=== PATIENT | female | born 1990 | race Caucasian/White ===

== ENCOUNTER 2020-02-25 08:09 | Outpatient (CLI) | payer OTHER, SELFPAY ==
[2020-02-25 08:31] LABS: Hematocrit 42.2 % (37.0-47.0); Hemoglobin 14.5 g/dL (12.0-15.0); Mean Corpuscular HGB Conc 34.4 g/dl (32-36); Mean Corpuscular Hemoglobin 30.5 pg (26-34); Mean Corpuscular Volume 88.7 fl (80-100); Platelet Count Result 283 k/mm3 (150-375); Red Blood Count 4.76 M/mm3 (4.2-5.4); White Blood Count 5.5 K/mm3 (4.5-10.0)
[2020-02-25 08:47] LABS: Blood Urea Nitrogen 16 mg/dL (7-17); Carbon Dioxide 28 mmol/L (22-30); Chloride 103 mmol/L (98-107); Estimated Glomerular Filt Rate > 60; Glucose 118 mg/dL (65-105); Potassium 3.9 mmol/L (3.4-5.0); Sodium 136 mmol/L (137-145)
[2020-02-27 21:10] LABS: Varicella IgM Antibody <=0.90 (<=0.90)
== END 2020-02-25 08:10 | disposition home or self-care (01) ==
LOC: ANHLAB 08:12
PROVIDERS: PCP Family Medicine; Visit Provider Nurse Practitioner Family
DX: K62.5 Hemorrhage of anus and rectum (principal); Z86.19 Personal history of other infectious and parasitic diseases; Z13.1 Encounter for screening for diabetes mellitus
CPT/HCPCS: 36415; 80048; 84443; 85027; 86787

== ENCOUNTER 2020-06-07 10:56 | Outpatient (CLI) | payer OTHER, SELFPAY ==
[2020-06-07 11:37] LABS: Anion Gap 6 mmol/L (8-16); Blood Urea Nitrogen 15 mg/dL (7-17); Carbon Dioxide 31 mmol/L (22-30); Chloride 104 mmol/L (98-107); Estimated Glomerular Filt Rate > 60; Glucose 83 mg/dL (65-105); Potassium 3.9 mmol/L (3.4-5.0); Sodium 141 mmol/L (137-145)
[2020-06-07 12:20] LABS: Free T4 Free Thyroxine 0.69 ng/mL (0.78-2.19)
== END 2020-06-07 10:57 | disposition home or self-care (01) ==
LOC: ANHLAB 10:58
PROVIDERS: PCP Family Medicine; Visit Provider Nurse Practitioner Family
DX: E03.9 Hypothyroidism, unspecified (principal); E83.51 Hypocalcemia
CPT/HCPCS: 36415; 80048; 84439; 84443

== ENCOUNTER 2021-01-26 09:36 | Outpatient (CLI) | payer OTHER, SELFPAY | END 2021-01-26 09:37 | disposition home or self-care (01) | PROVIDERS: PCP Family Medicine; Visit Provider Nurse Practitioner Family | DX: E03.9 Hypothyroidism, unspecified (principal) | CPT/HCPCS: 36415; 84439; 84443 ==

== ENCOUNTER 2021-06-13 15:28 | Outpatient (CLI) | payer OTHER, SELFPAY ==
--- NOTE | ~2021-06-13 | US_ITS ---
EXAMINATION: US OB <= 14 weeks fetus DATE: 06/13/2021 16:01 INDICATION: Irregular menstruation. Establish dating of during first trimester. TECHNIQUE: Real-time pelvic ultrasound utilizing both a transvaginal and transabdominal probe was pe rformed. The interpreting radiologist was not present for the study. COMPARISON: None. FINDINGS: The uterus measures 12.0 x 5.4 x 6.4 cm. There is an intrauterine gestational sac. A yolk sac and fe emery pole are identified. The crown rump length measures 1.6 cm, which correlates with an estimated ge stational age of 7 weeks and 3 days. heart motion is identified measuring 169 beats per minute (bpm) by M-mode Doppler. There is a 3.8 x 3.0 x 3.3 cm mass which is peripherally hypoechoic, central ly isoechoic the posterior uterine fundus consistent with a uterine fibroid. The right ovary measures 2.8 x 1.1 x 1.3 cm. The left ovary measures 3.3 x 2.0 x 2.5 cm. Anechoic 1.5 cm left ovarian cyst. There is no free fluid in the pelvis. IMPRESSION: 1. Single living fetus with heart of 169 bpm. 2. Gestational age by ultrasound of 8 weeks 0 day(s) +/- 5 day(s) with ultrasound estimated date of delivery ([facility]WIN) of 01/23/2022. 3. 3.8 cm uterine fibroid. Reviewed, dictated and finalized at location B. IMPRESSION: 1. Single living fetus with heart of 169 bpm. 2. Gestational age by ultrasound of 8 weeks 0 day(s) +/- 5 day(s) with ultraso und estimated date of delivery (ASHWIN) of 01/23/2022. 3. 3.8 cm uterine fibroid.
== END 2021-06-13 15:29 | disposition home or self-care (01) ==
LOC: ANHIMG 15:31
PROVIDERS: PCP Family Medicine; Visit Provider Obstetrics & Gynecology
DX: Z36.89 Encounter for other specified antenatal screening (principal); Z3A.08 8 weeks gestation of pregnancy; D25.9 Leiomyoma of uterus, unspecified
CPT/HCPCS: 76801

== ENCOUNTER 2021-06-21 09:33 | Outpatient (CLI) | payer OTHER, SELFPAY ==
[2021-06-21 10:05] LABS: Hematocrit 39.3 % (37.0-47.0); Hemoglobin 13.6 g/dL (12.0-15.0); Mean Corpuscular HGB Conc 34.6 g/dl (32-36); Mean Corpuscular Volume 86.6 fl (80-100); Mean Platelet Volume 9.6 fl (7.4-10.4); Platelet Count Result 269 k/mm3 (150-375); Red Blood Count 4.54 M/mm3 (4.2-5.4); Red Cell Distribution Width 11.9 % (11.5-14.5); White Blood Count 7.2 K/mm3 (4.5-10.0)
[2021-06-21 11:26] LABS: HIV 1/2 Ab P24 Ag Result Negative (Negative)
[2021-06-21 11:49] LABS: Hepatitis B Surface Antigen Negative (Negative); Rubella IgG Antibody 34.7 IU/ML
[2021-06-22 13:13] LABS: Rapid Plasma Reagin Non-Reactive (NonReactive)
[2021-06-23 18:31] LABS: CMV IgG Antibody <0.60 U/mL (<0.60)
[2021-06-25 11:40] LABS: Varicella IgG Antibody >4000.00 Index (>=165.00)
== END 2021-06-21 09:34 | disposition home or self-care (01) ==
LOC: ANHLAB 09:35
PROVIDERS: PCP Family Medicine; Visit Provider Obstetrics & Gynecology
DX: N92.5 Other specified irregular menstruation (principal)
CPT/HCPCS: 36415; 84702; 85027; 86592; 86644; 86703; 86747; 86762; 86787; 86850; 86900; 86901; 87086; 87088; 87340; G0432

== ENCOUNTER 2021-09-19 10:11 | Outpatient (CLI) | payer OTHER, SELFPAY ==
[2021-09-19 11:13] LABS: Free T4 Free Thyroxine 0.75 ng/mL (0.78-2.19)
[2021-09-21 12:39] LABS: Triiodothyronine T3 Free 2.9 pg/mL (2.3-4.2)
== END 2021-09-19 10:12 | disposition home or self-care (01) ==
PROVIDERS: PCP Family Medicine; Visit Provider Obstetrics & Gynecology
DX: E03.9 Hypothyroidism, unspecified (principal)
CPT/HCPCS: 36415; 84439; 84443; 84481

== ENCOUNTER 2021-11-01 09:25 | Outpatient (CLI) | payer OTHER, SELFPAY ==
[2021-11-01 11:07] LABS: Glucose 1 Hour PP 50gm Dose 111 mg/dL
[2021-11-01 11:11] LABS: Basophils Absolute Auto 0.1 K/mm3 (0.0-0.1); Basophils Percent Auto 0.5 % (0.2-1.2); Eosinophils Absolute Auto 0.1 K/mm3 (0-0.3); Eosinophils Percent Auto 0.9 % (0-4.4); Hematocrit 36.6 % (37.0-47.0); Hemoglobin 12.5 g/dL (12.0-15.0); Immature Granulocyte Absolute 0.24 K/mm3 (0.00-0.031); Immature Granulocyte Percent A 2.4 % (0-0.5); Lymphocytes Absolute Auto 1.89 K/mm3 (0.9-3.2); Mean Corpuscular HGB Conc 34.2 g/dl (32-36); Mean Corpuscular Hemoglobin 31.4 pg (26-34); Mean Platelet Volume 10.2 fl (7.4-10.4); Monocytes Absolute Auto 0.4 K/mm3 (0.1-0.6); Monocytes Percent Auto 3.6 % (2.6-8.5); Neutrophils Absolute Auto 7.3 K/mm3 (1.3-6.7); Neutrophils Percent Auto 73.6 % (45.5-73.1); Platelet Count Result 222 k/mm3 (150-375); Red Blood Count 3.98 M/mm3 (4.2-5.4); Red Cell Distribution Width 13.1 % (11.5-14.5)
[2021-11-01 11:31] LABS: Free T4 Free Thyroxine 0.68 ng/mL (0.78-2.19)
[2021-11-01] MEDS: RHO(D) IMMUNE GLOBULIN 300 MCG/2 ML SYRINGE IM (13:03)
[2021-11-01 18:47] LABS: HIV 1/2 Ab P24 Ag 0.09; HIV 1/2 Ab P24 Ag Result Negative (Negative)
== END 2021-11-01 09:26 | disposition home or self-care (01) ==
LOC: ANHLAB 09:26
PROVIDERS: PCP Family Medicine; Visit Provider Obstetrics & Gynecology
DX: Z34.90 Encounter for supervision of normal pregnancy, unspecified, unspecified trimester (principal); Z3A.00 Weeks of gestation of pregnancy not specified
CPT/HCPCS: 36415; 82947; 84439; 84443; 85025; 85461; 86703; 90384; G0432; J2790

== ENCOUNTER 2022-01-18 13:47 | Outpatient (CLI) | payer OTHER, SELFPAY ==
[2022-01-18 14:26] LABS: Hematocrit 38.4 % (37.0-47.0); Hemoglobin 12.8 g/dL (12.0-15.0); Mean Corpuscular HGB Conc 33.3 g/dl (32-36); Mean Corpuscular Hemoglobin 30.1 pg (26-34); Mean Corpuscular Volume 90.4 fl (80-100); Mean Platelet Volume 10.9 fl (7.4-10.4); Platelet Count Result 236 k/mm3 (150-375); Red Blood Count 4.25 M/mm3 (4.2-5.4); Red Cell Distribution Width 13.7 % (11.5-14.5); White Blood Count 9.3 K/mm3 (4.5-10.0)
[2022-01-19 06:30] LABS: Rapid Plasma Reagin Non-Reactive (NonReactive)
== END 2022-01-18 13:48 | disposition home or self-care (01) ==
LOC: ANHLAB 13:49
PROVIDERS: PCP Family Medicine; Visit Provider Obstetrics & Gynecology
DX: Z34.93 Encounter for supervision of normal pregnancy, unspecified, third trimester (principal); Z3A.00 Weeks of gestation of pregnancy not specified
CPT/HCPCS: 36415; 85027; 86592; 86850; 86880; 86900; 86901; 86902

== ENCOUNTER 2022-01-19 05:02 | Inpatient (IN) | payer OTHER, SELFPAY ==
--- NOTE | 2022-01-03 12:58 | PC.NURSE ---
Verified with OR schedule and patient --C/S with tubal ligation on 01/19/22 Patient given requisition for lab draw on 01/18/22
--- NOTE | 2022-01-18 14:57 | PM.IMHP ---
H&P: HPI History of Present Illness Date/Time: 01/18/22 14:57 31-year-old female presents for repeat delivery. She is a 3 para 2001 with 2 prior deliveries. records are on the chart and no significant abnormalities or complications during this . She does have hypothyroidism for which she takes Synthroid. We have also discussed tubal ligation which she does desire. We have reviewed the permanence failure rate increased risk of ectopic and regret and she states good understanding and desires to proceed. Chief Complaint: Review of Systems Review of Systems: All systems reviewed & are unremarkable except as noted in HPI and below PMFSH Past Medical History Medical History BMI 29.0-29.9,adult delivery delivered Hypothyroidism Surgical History Surgical History Delivery by section (12/08/12) primary c/s - arrest of dilation Delivery by section (03/06/19) rpt c/s History of gynecological procedure cryosurgery 2007 Family History Family History Father Diabetes mellitus Acute myocardial infarction Mother Hypertension Sibling No problems noted. 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[employer] Gender identity (if verbalized by the patient): Female Spiritual care concerns: No Meds Home Medications and Allergies Home Medications Medication Instructions Recorded Confirmed Type vitamins-iron fumarate 65 1 tablet PO DAILY 09/20/21 01/16/22 History mg iron-folic acid 1 mg tablet levothyroxine 75 mcg capsule 75 mcg PO DAILY #90 cap 10/31/21 01/16/22 Rx Allergies Allergy/AdvReac Type Severity Reaction Status Date / Time No Known Allergies Allergy Unknown Verified 01/16/22 09:39 Exam Const: General: cooperative, healthy appearing and comfortable Resp: Effort & Inspection: normal respiratory effort Auscultation: clear to auscultation bilaterally Cardio: Rate: regular rate Rhythm: regular rhythm GI: Inspection: normal to inspection Auscultation: normal bowel sounds : External Female Exam: normal external appearance Speculum Exam - Vagina: normal appearance of the vagina Bimanual exam- vagina & uterus: enlarged ( Fundal height 40cm heart tones 130-140) Assessment and Plan Assessment and plan (1) 39 weeks gestation of : Code(s): Z3A.39 - 39 weeks gestation of Status: Acute (2) Previous delivery affecting : Code(s): O34.219 - Maternal care for unspecified type scar from previous delivery Status: Acute (3) Encounter for female sterilization procedure: Code(s): Z30.2 - Encounter for sterilization Status: Acute (4) Hypothyroidism: Code(s): E03.9 - Hypothyroidism, unspecified Status: Acute Additional Plan proceed with repeat low-transverse delivery with bilateral tubal ligation/ salpingectomy.
[2022-01-19] VITALS (47 sets, daily range): BP systolic 83–125; BP diastolic 15–86; PULSE 48–94; RESP 14–18; TEMP 36.2–36.8; O2SAT 85–100; BMI 32.5
--- NOTE | 2022-01-19 05:02 | LDADM ---
This patient, Deidre Licona, was admitted to Labor/Delivery/Recovery 120 on 01/19/22 at 05:02. Plans for labor, pain management and were discussed with patient. Patient/family oriented to hospital policies and general routines including ID bracelet, bed and alarms, visiting hours, pain management, procedures, bathroom and other care routines, personal items, smoking policy, room service/diet and guest tray routines, security routines, and visiting hours. Patient/Family are encouraged to report perceived risks to care and to ask questions if they do not understand what they are told or what they should do. See OBIX for further documentation.
--- OUTSIDE RECORDS SUMMARY | 2022-01-19 05:06 | XMS_ITS ---
:1990 Author Care Team Providers Name Role Phone MAURY DE LUNA MD Primary Care Provider [phone] Allergies Code Code System Name Reaction Severity Status Onset NKDA ? Medications Name Status Start Date Stop Date ? ? Amethia Lo 0.10 mg-20 mcg (84)/10 mcg(7) tablets,3 month dose pa ck Unknown ? Not available tablet by mouth daily azithromycin 250 mg tablet Unknown ? Not a vailable benzonatate 100 mg capsule Unknown ? Not a vailable Boostrix Tdap 2.5 Lf unit-8 mcg-5 Lf/0.5 mL intramuscular syring e Active ? Not available TO BE ADMINISTERED BY PHARMACIST FOR IMMUNIZATION hydrocodone 5 mg-acetaminophen 325 mg tablet Completed ? 04/06/2019 TAKE 1 TABLET BY MOUTH EVERY 3 HOURS NEEDED FOR PAIN RATED 5 OR LESS ibuprofen 600 mg tablet Completed ? 04/06/20 19 TAKE 1 TABLET BY MOUTH EVERY 6 HOURS NEEDED FOR CRAMPING Jencycla 0.35 mg tablet Completed ? 11/16/19 21 TAKE 1 TABLET BY MOUTH ONCE DAILY levothyroxine 25 mcg tablet Completed ? 05/2021 TAKE 1 TABLET BY MOUTH EVERY DAY levothyroxine 50 mcg tablet Active ? Not available Lo Loestrin Fe 1 mg-10 mcg (24)/10 mcg (2) tablet Unknown ? Not available Take 1 tablet every day by oral route. metoclopramide 10 mg tablet Unknown ? Not available Microgestin FE 09/28 (28) 1 mg-20 mcg (21)/75 mg (7) tablet Unkno wn ? Not available TAKE 1 TABLET BY MOUTH EVERY DAY prednisone 10 mg tablet Completed ? 05/30/20 21 TAKE 3 TABS EVERY DAY FOR 5 DAYS propranolol 10 mg tablet Completed ? 021 TAKE 1 TABLET BY MOUTH EVERY 12 HOURS NEEDED F
--- OUTSIDE RECORDS SUMMARY | 2022-01-19 05:07 | XMS_ITS ---
:1990 Author Care Team Providers Name Role Phone MAURY DE LUNA MD Primary Care Provider [phone] Allergies Code Code System Name Reaction Severity [...] NEEDED FOR CRAMPING Jencycla 0.35 mg tablet Active ? Not avai lable TAKE 1 TABLET BY MOUTH ONCE DAILY Lo Loestrin Fe 1 mg-10 mcg (24)/10 mcg (2) tablet Unknown ? Not available Take 1 tablet every day by oral route. metoclopramide 10 mg tablet Unknown ? Not available Microgestin FE 09/28 (28) 1 mg-20 mcg (21)/75 mg (7) tablet Unkno wn ? Not available Take 1 tablet every day by oral route. Sprintec (28) 0.25 mg-35 mcg tablet Completed ? 09/11/2017 TAKE ONE TABLET BY MOUTH ONCE DAILY tobramycin 0.3 %-dexamethasone 0.1 % eye drops,suspension Unknow n ? Not available INSTILL 1 DROP INTO RIGHT EYE FOUR TIMES A DAY DIRECTED Vimovo 500 mg-20 mg tablet,immediate and delay release Completed ? 08/05/2018 TAKE 1 TABLET BY MOUTH TWICE A DAY
[2022-01-19] MEDS: LACTATED RINGERS 1,000 ML 125 ML IV CONT (05:50)
--- NOTE | 2022-01-19 06:02 | WPDANESEPP ---
Anes - Eval Pre Procedure Procedure: Operation Date: 01/19/22 07:30 Proposed Procedures p Repeat Section with Bilateral Tubal Ligation - Wolfgang Abraham MD Date/Time: 01/19/22 06:02 Pre Op Diagnosis: C/S Patient Data Age: 31 Gender: F Height: 1.63 m Weight: 86 kg Last Vital Signs Pulse 94 01/19/22 05:47 BP 113/70 01/19/22 05:47 Allergies Allergy/AdvReac Type Severity Reaction Status Date / Time No Known Allergies Allergy Unknown Verified 01/16/22 09:39 Home Medications Medication Instructions Recorded Confirmed Type vitamins-iron fumarate 65 1 tablet PO DAILY 09/20/21 01/19/22 History mg iron-folic acid 1 mg tablet levothyroxine 75 mcg capsule 75 mcg PO DAILY #90 cap 10/31/21 01/19/22 Rx Patient hx anesthesia problems: none Family hx anesthesia problems: none Results Review: All pre-operative results and documents have been reviewed as part of the pre-operative evaluation. [facility] Past Medical History Medical History BMI 29.0-29.9,adult delivery delivered Hypothyroidism Surgical History Surgical History Delivery by section (12/08/12) primary c/s - arrest of dilation Delivery by section (03/06/19) rpt c/s History of gynecological procedure cryosurgery 2007 Family History Family History Father Diabetes mellitus Acute myocardial infarction Mother Hypertension Sibling No problems noted. 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
--- NOTE | 2022-01-19 06:40 | WPDANESEPPF ---
Anes - Initial Pre Proc Eval Procedure: Operation Date: 01/19/22 07:30 Proposed Procedures p Repeat Section with Bilateral Tubal Ligation - Wolfgang Abraham MD Date/Time: 01/19/22 06:40 Surgeon: Wolfgang Abraham MD Pre Op Diagnosis: C/S Patient Data Age: 31 Gender: F Height: 1.63 m Weight: 86 kg Last Vital Signs Pulse 94 01/19/22 05:47 BP 113/70 01/19/22 05:47 Allergies Allergy/AdvReac Type Severity Reaction Status Date / Time No Known Allergies Allergy Unknown Verified 01/16/22 09:39 Home Medications Medication Instructions Recorded Confirmed Type vitamins-iron fumarate 65 1 tablet PO DAILY 09/20/21 01/19/22 History mg iron-folic acid 1 mg tablet levothyroxine 75 mcg capsule 75 mcg PO DAILY #90 cap 10/31/21 01/19/22 Rx Patient hx anesthesia problems: none Family hx anesthesia problems: none Results Review: All pre-operative results and documents have been reviewed as part of the pre-operative evaluation. [facility] Past Medical History Medical History BMI 29.0-29.9,adult delivery delivered Hypothyroidism Surgical History Surgical History Delivery by section (12/08/12) primary c/s - arrest of dilation Delivery by section (03/06/19) rpt c/s History of gynecological procedure cryosurgery 2007 Family History Family History Father Diabetes mellitus Acute myocardial infarction Mother Hypertension Sibling No problems noted. 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 Informed Consent: The patient's anesthetic plan and its attendant risks and benefits were discussed with the patient/family/POA. Questions were solicited and answers provided to the satisfaction of the patient/family/POA.
--- NOTE | 2022-01-19 06:54 | WPDHPUPDATE1 ---
History and Physical Update Update Date/Time: 01/19/22 06:54 History and Physical has been reviewed, including an updated exam of the patient. There are NO changes in the patient's condition. Risks, benefits, and alternatives have been discussed and questions answered. Patient agrees to proceed with procedure.
--- NOTE | 2022-01-19 07:48 | PM.OBPRVD ---
OB - Delivery Note Procedure Procedure: Procedures Operation Date: 01/19/22 07:30 <No data on this case meets the specified criteria> Events: Previous Delivery and Other (Undesired fertility) Route of delivery: (With bilateral tubal ligation) Specimen: Yes (Tubes x2) Quantitative Blood Loss (ml): 415 Anesthesia type: Spinal Disposition: Floor Narrative: Patient. Is she was skin incision entered skull vertex is. Cord clamped center manually was exteriorized. Membranes and clots removed from the uterus and the uterine incision was approximated using 0 Monocryl in a running interlocking manner with good approximation hemostasis noted. Bilaterally tubes were grasped and doubly ligated using 0 plain suture. Small amount of oozing on the right tube was rendered hemostatic with a [id number] 2-0 chromic suture uterus was turned to the abdomen tubal stumps were hemostatic and intact and the uterine incision was hemostatic. All subfascial tissue was rendered hemostatic and fascia was approximated 0 Vicryl from left angle midline right angle to midline with good approximation and hemostasis noted. Subcutaneous tissue approximated using 0 plain suture and kraig used to approximate the skin edges. Patient was sent to recovery room in stable condition [place] [facility] Weeks of gestation at delivery: 39 gender: Female Weight (pounds): 6 Weight (ounces): 13 presentation: vertex Placenta delivery description: Manual Removal Cord Vessel Description: 3 Vessels score one minute: 9 score five minutes: 9 AMG Delivery Billing Delivery Delivery: Delivery Charge
[2022-01-19] MEDS: OXYTOCIN 30 UNITS/NS 500 ML 30 UNITS/500 ML BAG 125 UNITS IV CONT (08:36)
[2022-01-19] MEDS: LORATADINE 10 MG TABLET PO (10:01)
--- NOTE | 2022-01-19 10:05 | OBPPTRN ---
Patient transferred to post room # 281 via stretcher. Support person present. Oriented to unit, room, information board, rooming in, admission packet and security measures. Patient verbalizes understanding.
[2022-01-19] MEDS: DEXTROSE 5%/0.45% SOD CHL 1,000 ML 125 ML IV CONT (12:32)
[2022-01-19] MEDS: DOCUSATE SODIUM 100 MG CAPSULE PO (16:56)
[2022-01-20] MEDS: IBUPROFEN 600 MG TABLET PO ×3 (04:27→22:16)
[2022-01-20] MEDS: SIMETHICONE 80 MG TAB.CHEW PO ×3 (04:27→22:16)
[2022-01-20 04:30] VITALS: BP 116/74; PULSE 93; RESP 18; TEMP 36.8; O2SAT 99
[2022-01-20 04:51] LABS: Basophils Percent Auto 0.3 % (0.2-1.2); Eosinophils Percent Auto 0.3 % (0-4.4); Hemoglobin 12.9 g/dL (12.0-15.0); Immature Granulocyte Absolute 0.06 K/mm3 (0.00-0.031); Immature Granulocyte Percent A 0.5 % (0-0.5); Lymphocytes Percent Auto 14.8 % (18.3-44.2); Mean Corpuscular HGB Conc 33.9 g/dl (32-36); Mean Corpuscular Hemoglobin 30.6 pg (26-34); Mean Corpuscular Volume 90.3 fl (80-100); Monocytes Absolute Auto 0.4 K/mm3 (0.1-0.6); Monocytes Percent Auto 3.6 % (2.6-8.5); Neutrophils Absolute Auto 9.2 K/mm3 (1.3-6.7); Neutrophils Percent Auto 80.5 % (45.5-73.1); Platelet Count Result 225 k/mm3 (150-375); Red Blood Count 4.21 M/mm3 (4.2-5.4); Red Cell Distribution Width 13.7 % (11.5-14.5); White Blood Count 11.5 K/mm3 (4.5-10.0)
[2022-01-20] MEDS: MULTIVIT/MIN/PREN/FOL AC/IRON TABLET 1 TAB PO (06:51)
[2022-01-20] MEDS: DOCUSATE SODIUM 100 MG CAPSULE PO ×2 (06:52→16:46)
[2022-01-20] MEDS: LEVOTHYROXINE SODIUM 75 MCG TABLET PO (06:52)
--- NOTE | 2022-01-20 07:57 | P.PNAN_ITS ---
Anes - Prog Note Post-Op Date/Time: 01/20/22 07:57 Vital Signs: Last Vital Signs Temp 36.8 C 01/20/22 04:30 Pulse 93 01/20/22 04:30 Resp 18 01/20/22 04:30 BP 116/74 01/20/22 04:30 Pulse Ox 99 01/20/22 04:30 Pain Score (VAS): 11/16 I/O: Intake & Output 01/19/22 01/19/22 01/20/22 15:59 23:59 07:59 Intake Total 2200 800 Output Total 50 3850 1850 Balance -50 -5602 -1052 Laboratory Tests 01/20/22 04:30 01/20/22 01/20/22 04:30 04:30 WBC 11.5 H RBC 4.21 Hgb 12.9 Hct 38.0 MCV 90.3 MCH 30.6 MCHC 33.9 RDW 13.7 Plt Count 225 MPV 11.0 H Immature Gran % (Auto) 0.5 Neut % (Auto) 80.5 H Lymph % (Auto) 14.8 L [place] % (Auto) 3.6 Eos % (Auto) 0.3 Baso % (Auto) 0.3 Lymph # (Auto) 1.70 [place] # (Auto) 0.4 Eos # (Auto) 0.0 Baso # (Auto) 0.0 Abs Immat Gran (auto) 0.06 H Absolute Neuts (auto) 9.2 H Absolute Nucleated RBC 0.0 Nucleated RBC % 0.0 Blood Type A Negative Antibody Screen Negative Screen Negative Baby's Blood Type A pos Baby's ANDREAS Positive Doses of RhIg Required 1 Patient Feedback: Patient satisfied with anesthetic care.
[2022-01-20 08:00] VITALS: BP 110/66; PULSE 78; RESP 18; TEMP 36.5; O2SAT 99
--- NOTE | 2022-01-20 09:59 | P.DS_ITS ---
DS: Admitting Diagnosis Discharge Date 01/21/2022 Admitting Diagnosis OB - DS: Summary OB Procedures : None OB Procedures Intrapartum: OB Procedures: : None Peripartum Data Procedures: Procedures Operation Date: 01/19/22 07:30 Actual Procedure Side Surgeon p Repeat Section with Bilateral Tubal Ligation Not Applicable Wolfgang Abraham MD Time Spent with Patient Time attestation: Total time spent providing and/or coordinating discharge services: DS: Data Data Completed and Pending Pending studies at discharge: Pending at discharge 01/19/22 07:29 Surgical [PTH] Routine Surgical [PTH] Routine Labs on day of discharge: Labs from last 24 hours 01/20/22 01/20/22 04:30 04:30 WBC 11.5 H RBC 4.21 Hgb 12.9 Hct 38.0 MCV 90.3 MCH 30.6 MCHC 33.9 RDW 13.7 Plt Count 225 MPV 11.0 H Immature Gran % (Auto) 0.5 Neut % (Auto) 80.5 H Lymph % (Auto) 14.8 L [place] % (Auto) 3.6 Eos % (Auto) 0.3 Baso % (Auto) 0.3 Lymph # (Auto) 1.70 [place] # (Auto) 0.4 Eos # (Auto) 0.0 Baso # (Auto) 0.0 Abs Immat Gran (auto) 0.06 H Absolute Neuts (auto) 9.2 H Absolute Nucleated RBC 0.0 Nucleated RBC % 0.0 Blood Type A Negative Antibody Screen Negative Screen Negative Baby's Blood Type A pos Baby's ANDREAS Positive Doses of RhIg Required 1 Discharge Plan Discharge Discharging Clinician: Wolfgang Abraham Patient Disposition: Home, Self-Care Activity: as tolerated Diet: as tolerated Wound Care Instructions: incision open to air Patient Instructions: Antibiotic Form Stand Alone Forms: General Discharge Information Follow-up/Referrals: Wolfgang Abraham MD [Physician] - 3 Weeks Discharge Medications: New hydrocodone-acetaminophen 5-325 mg Tablet 1 tablet PO Q3H PRN (Reason: Moderate Pain (4-6)) Qty: 30 RF: 0 ibuprofen 600 mg Tablet 600 mg PO Q6H PRN (Reason: Cramping) Qty: 30 RF: 0 Continued vit-iron fum-folic ac 65 mg iron- 1 mg tablet 1 tablet PO DAILY RF: 0 levothyroxine 75 mcg capsule 75 mcg PO DAILY Qty: 90 RF: 0 Date of admission: 01/19/22 05:02 Primary Care Provider: Faustino Bob Admitting Provider: Wolfgang Abraham Attending physician on admission: Wolfgang Abraham Condition: Stable
[2022-01-20] MEDS: RHO(D) IMMUNE GLOBULIN 300 MCG/2 ML SYRINGE IM (16:46)
[2022-01-20 18:25] VITALS: BP 110/75; PULSE 77; RESP 16; TEMP 36.3
--- NOTE | 2022-01-20 20:52 | WPDANLDNPN2 ---
Anes-Prog Note L&D-Neuraxial Date/Time: 01/20/22 20:52 Neuraxial medications: intrathecal PF morphine Opiod-related complaints: none Patient feedback: Patient satisfied with post-operative pain management.
[2022-01-21] MEDS: SIMETHICONE 80 MG TAB.CHEW PO (05:15)
[2022-01-21] MEDS: IBUPROFEN 600 MG TABLET PO (05:15)
[2022-01-21] MEDS: MULTIVIT/MIN/PREN/FOL AC/IRON TABLET 1 TAB PO (07:11)
[2022-01-21] MEDS: DOCUSATE SODIUM 100 MG CAPSULE PO (07:11)
[2022-01-21] MEDS: LEVOTHYROXINE SODIUM 75 MCG TABLET PO (07:12)
--- NOTE | 2022-01-21 07:47 | PC.NURSE ---
Patient was given the opportunity to view the discharge video Mother & Baby Care, The First Two Weeks and to ask questions. Patient declined viewing the video and has been given the mother/baby guide for home reference.
[2022-01-21 07:50] VITALS: BP 110/73; PULSE 69; RESP 16; TEMP 36.4; O2SAT 100
[2022-01-21 08:00] VITALS: PULSE 69; RESP 16; O2SAT 100
[2022-01-22 09:13] VITALS: BP 126/68; PULSE 91; RESP 16; TEMP 36.8; O2SAT 98
--- NOTE | 2022-01-23 16:37 | PM.OBDSVD ---
DS: Admitting Diagnosis Discharge Date 01/21/22 Admitting Diagnosis OB - DS: Summary OB Procedures : None OB Procedures Intrapartum: and Tubal ligation OB Procedures: : None Peripartum Data Procedures: Procedures Operation Date: 01/19/22 07:30 Actual Procedure Side Surgeon p Repeat Section with Bilateral Tubal Ligation Not Applicable Wolfgang Abraham MD Time Spent with Patient Time attestation: Total time spent providing and/or coordinating discharge services: DS: Data Data Completed and Pending Completed studies during hospitalization: Pending at discharge 01/19/22 07:29 Surgical [PTH] Routine Surgical [PTH] Routine Discharge Plan Discharge Consulting providers: Yesenia Steinberg ; Ezekiel Chanel ; Matt Strickland ; Bharathi Arthur Discharging Clinician: Wolfgang Abraham Patient Disposition: Home, Self-Care Activity: as tolerated Diet: as tolerated Wound Care Instructions: incision open to air Discharge Instructions: Education: Mom and Baby Guide Given to: Mother Follow-Up: Call your delivering provider's office for an appointment to be seen in: 3 weeks Mom and baby should come to the [facility] for the follow-up appointment. Appointment Date/Time: Saturday, January 22, 2022 at 9:00 a.m. What to expect at your follow-up visit: Blood Pressure Check Physical Assessment Call [phone] if you are unable to keep your appointment time. BREAST CARE: * Wear a snug supportive bra. * For engorgement discomfort: Breast Feeding: * Apply warm moist washcloths * Express milk as needed to relieve engorgement * Wear loose clothing * For sore nipples: * Identify correct latch-on * Apply warm moist washcloths before and after nursing * Air dry nipples after nursing * May apply Lansinoh cream to nipples ABDOMINAL INCISION: (if applicable) * Allow incision to air dry * Do NOT use lotions for powders on your incision * When showering, allow soap and water to run over the incision, but do not wash incision EPISIOTOMY/PERINEAL CARE: * Until bleeding stops, use your cedrick bottle after urinating * Change your pad frequently throughout the day * You may take sitz baths several times a day (fill your bathtub with warm water and soak for 20 minutes.) Do NOT bathe in the water * No tub baths until seen by your physician - You may shower ACTIVITY: * Rest as much as possible. * Do not exercise or lift anything heavier than your baby (such as laundry or other children.) * Avoid stairs or driving as much as possible. * Do not put anything into the vagina. No douching, tampons, or sexual activity until seen by physician. NOTIFY PHYSICIAN IF YOU HAVE ANY QUESTIONS OR IF ANY OF THE FOLLOWING SYMPTOMS OCCUR: * If your incision becomes red, swollen, or more painful than what you have experienced in the hospital. * If your vaginal bleeding becomes foul smelling. * If your vaginal bleeding becomes more heavy than a period or if your bleeding changes from pink to bright red. However, you may pass an occasional walnut-sized clot once or twice for the first week . * If you experience a sharp, shooting pain in you calves. * If you discover a hard, reddened area on your breast or if you experience flu-like symptoms. DIET: * Eat regular, well-balanced meals. * Drink plenty of fluids daily. If , drink to thirst. Stand Alone Forms: General Discharge Information Follow-up/Referrals: Wolfgang Abraham MD [Physician] - 3 Weeks Discharge Medications: New hydrocodone-acetaminophen 5-325 mg Tablet 1 tablet PO Q3H PRN (Reason: Moderate Pain (4-6)) Qty: 30 RF: 0 ibuprofen 600 mg Tablet 600 mg PO Q6H PRN (Reason: Cramping) Qty: 30 RF: 0 Continued vit-iron fum-folic ac 65 mg iron- 1 mg tablet
== END 2022-01-21 10:30 | disposition home or self-care (01) | DRG 785 ==
LOC: ANHLDR 05:05 → ANHOB2 10:24
PROVIDERS: Admitting Provider Obstetrics & Gynecology; PCP Family Medicine; Visit Provider Obstetrics & Gynecology
PROC: 10D00Z1 Extraction of Products of Conception, Low, Open Approach (ICD-10-PCS; CPT 59514; principal; 2022-01-19 07:30)
DX: O34.211 Maternal care for low transverse scar from previous cesarean delivery (principal); Z37.0 Single live birth; Z3A.39 39 weeks gestation of pregnancy; O99.284 Endocrine, nutritional and metabolic diseases complicating childbirth; E03.9 Hypothyroidism, unspecified; Z30.2 Encounter for sterilization
CPT/HCPCS: 36415; 85025; 85461; 88302; 90384; A9270; J0131; J2274; J2370; J2405; J2590; J2790; J7120

== ENCOUNTER 2022-05-09 09:35 | Outpatient (CLI) | payer OTHER, SELFPAY ==
[2022-05-09 10:32] LABS: Free T4 Free Thyroxine 0.78 ng/mL (0.78-2.19)
[2022-05-09 10:49] LABS: Thyroid Stimulating Hormone 0.593 uIU/mL (0.465-4.680)
== END 2022-05-09 09:36 | disposition home or self-care (01) ==
PROVIDERS: PCP Family Medicine; Visit Provider Physician Assistant Medical
DX: E03.9 Hypothyroidism, unspecified (principal)
CPT/HCPCS: 36415; 84439; 84443

== ENCOUNTER 2023-06-01 07:32 | Outpatient (CLI) | payer OTHER, SELFPAY ==
[2023-06-01 07:56] LABS: Basophils Percent Auto 0.5 % (0.2-1.2); Eosinophils Absolute Auto 0.1 K/mm3 (0-0.3); Eosinophils Percent Auto 2.4 % (0-4.4); Hematocrit 41.4 % (37.0-47.0); Hemoglobin 13.9 g/dL (12.0-15.0); Immature Granulocyte Absolute 0.02 K/mm3 (0.00-0.031); Immature Granulocyte Percent A 0.3 % (0-0.5); Lymphocytes Percent Auto 38.4 % (18.3-44.2); Mean Corpuscular HGB Conc 33.6 g/dl (32-36); Mean Corpuscular Hemoglobin 29.8 pg (26-34); Mean Corpuscular Volume 88.7 fl (80-100); Mean Platelet Volume 9.6 fl (7.4-10.4); Monocytes Absolute Auto 0.3 K/mm3 (0.1-0.6); Monocytes Percent Auto 5.9 % (2.6-8.5); Neutrophils Percent Auto 52.5 % (45.5-73.1); Platelet Count Result 274 k/mm3 (150-375); Red Blood Count 4.67 M/mm3 (4.2-5.4); Red Cell Distribution Width 11.9 % (11.5-14.5); White Blood Count 5.7 K/mm3 (4.5-10.0)
[2023-06-01 08:03] LABS: Alanine Aminotransferase 24 U/L (6-35); Albumin Level 4.1 g/dL (3.5-5.1); Alkaline Phosphatase 93 U/L (38-126); Anion Gap 3 mmol/L (8-16); Aspartate Amino Transferase 25 U/L (14-36); Bilirubin,Total 0.9 mg/dL (0.2-1.3); Blood Urea Nitrogen 12 mg/dL (7-17); Calcium 8.6 mg/dL (8.4-10.2); Carbon Dioxide 30 mmol/L (22-30); Chloride 102 mmol/L (98-107); Cholesterol 196 mg/dL (0-200); Estimated Glomerular Filt Rate > 60; Glucose 92 mg/dL (65-110); HDL Direct 34 mg/dL; Potassium 4.2 mmol/L (3.4-5.0); Sodium 135 mmol/L (137-145); Triglycerides 235 mg/dL (<150)
[2023-06-01 08:14] LABS: LDL Cholesterol Direct 111 mg/dL
[2023-06-01 08:24] LABS: Free T4 Free Thyroxine 0.98 ng/mL (0.78-2.19)
== END 2023-06-01 07:33 | disposition home or self-care (01) ==
LOC: ANHLAB 07:33
PROVIDERS: PCP Family Medicine; Visit Provider Physician Assistant Medical
DX: E03.9 Hypothyroidism, unspecified (principal); Z13.220 Encounter for screening for lipoid disorders; Z68.30 Body mass index [BMI] 30.0-30.9, adult
CPT/HCPCS: 36415; 80053; 80061; 84439; 84443; 85025

== ENCOUNTER 2023-08-08 16:47 | Outpatient (CLI) | payer OTHER, SELFPAY ==
[2023-08-08 17:41] LABS: Sodium 137 mmol/L (137-145)
[2023-08-08 18:58] LABS: Vitamin D 25 Hydroxy 19.1 ng/mL
== END 2023-08-08 16:48 | disposition home or self-care (01) ==
LOC: ANHLAB 16:49
PROVIDERS: PCP Family Medicine; Visit Provider Nurse Practitioner Family
DX: R25.3 Fasciculation (principal); E55.9 Vitamin D deficiency, unspecified; E87.1 Hypo-osmolality and hyponatremia
CPT/HCPCS: 36415; 82306; 82607; 84295

== ENCOUNTER 2023-10-03 17:33 | Outpatient (CLI) | payer OTHER, SELFPAY ==
[2023-10-03 19:51] LABS: Vitamin D 25 Hydroxy 50.4 ng/mL
== END 2023-10-03 17:34 | disposition home or self-care (01) ==
LOC: ANHLAB 17:36
PROVIDERS: PCP Family Medicine; Visit Provider Nurse Practitioner Family
DX: E55.9 Vitamin D deficiency, unspecified (principal)
CPT/HCPCS: 36415; 82306

== ENCOUNTER 2023-10-24 16:37 | Outpatient (CLI) | payer OTHER, SELFPAY | END 2023-10-24 16:38 | disposition home or self-care (01) | LOC: ANHLAB 16:39 | PROVIDERS: PCP Family Medicine; Visit Provider Nurse Practitioner Family | DX: R25.1 Tremor, unspecified (principal) | CPT/HCPCS: 36415 ==

== ENCOUNTER 2023-11-14 08:59 | Outpatient (CLI) | payer OTHER, SELFPAY ==
--- NOTE | ~2023-11-14 | CT_ITS ---
Non-contrast Head CT History: Tremor Technique: Axial non-contrast imaging of the brain was performed. Dose reduction technique was used on this scan by utilizing automated exposure control and iterative reconstruction technique. The dose -length product (DLP) was 681.00 mGy-cm. Findings: There is no evidence of intracranial hemorrhage, mass lesion, or acute infarct. Brain par enchyma appears normal. The ventricles and subarachnoid spaces are normal in size. The calvarium ap pears normal. The visualized paranasal sinuses and mastoid air cells are clear. Impression: No significant abnormality seen. Reviewed, dictated and finalized at location . Y PILOT Impression: No significant abnormality seen.
== END 2023-11-14 09:00 | disposition home or self-care (01) ==
PROVIDERS: PCP Family Medicine; Visit Provider Nurse Practitioner Family
DX: R25.1 Tremor, unspecified (principal)
CPT/HCPCS: 70450

== ENCOUNTER 2024-05-27 09:36 | Outpatient (CLI) | payer OTHER, SELFPAY ==
--- NOTE | 2024-05-27 11:30 | NEURO_ITS ---
Impression: # Complains of right upper extremity discomfort. Not diabetic. # Right ulnar neuropathy across the elbow. # No Carpal Tunnel Syndrome. # Normal needle/EMG exam. Nerve Conduction Studies Anti Sensory Summary Table Stim Site NR Peak (ms) P-T Amp (?V) Site1 Site2 Delta-P (ms) Dist (cm) Jim (m/s) Left Median Anti Sensory (2-3nd Digit) Wrist 2.7 75.0 Wrist 2-3nd Digit 2.7 14.0 52 Wrist 2.7 90.4 Wrist 2-3nd Digit 2.7 14.0 52 Right Median Anti Sensory (2-3nd Digit) Wrist 2.5 57.3 Wrist 2-3nd Digit 2.5 14.0 56 Wrist 2.4 75.4 Wrist 2-3nd Digit 2.5 14.0 56 Left Radial Anti Sensory (Base 1st Digit) Wrist 1.9 33.4 Wrist Base 1st Digit 1.9 0.0 Right Radial Anti Sensory (Base 1st Digit) Wrist 2.3 16.4 Wrist Base 1st Digit 2.3 0.0 Left Ulnar Anti Sensory (5th Digit) Wrist 2.5 95.9 Wrist 5th Digit 2.5 14.0 56 Right Ulnar Anti Sensory (5th Digit) Wrist 2.3 91.5 Wrist 5th Digit 2.3 14.0 61 Motor Summary Table Stim Site NR Onset (ms) O-P Amp (mV) Site1 Site2 Delta-0 (ms) Dist (cm) Jim (m/s) Left Median Motor (Abd Poll Brev) Wrist 3.4 3.3 Elbow Wrist 4.6 27.0 59 Elbow 8.0 3.8 Right Median Motor (Abd Poll Brev) Wrist 3.0 6.4 Elbow Wrist 4.7 27.0 57 Elbow 7.7 2.5 Left Ulnar Motor (Abd Dig Minimi) Wrist 2.8 4.0 A Elbow Wrist 4.9 29.0 59 A Elbow 7.7 3.8 B Elbow Wrist 3.5 20.0 57 B Elbow 6.3 3.1 Right Ulnar Motor (Abd Dig Minimi) Wrist 2.8 9.0 A Elbow Wrist 5.2 27.0 52 A Elbow 8.0 7.4 B Elbow Wrist 3.5 20.0 57 B Elbow 6.3 8.5 F Wave Studies NR F-Lat (ms) L-R F-Lat (ms) Left Median (Mrkrs) (Abd Poll Brev) 25.70 1.02 Right Median (Mrkrs) (Abd Poll Brev) 26.72 1.02 Left Ulnar (Mrkrs) (Abd Dig Min) 26.92 0.67 Right Ulnar (Mrkrs) (Abd Dig Min) 26.25 0.67 EMG Side Muscle Nerve Root Ins Act Fibs Amp Dur Recrt Comment Right 1stDorInt Ulnar C8-T1 Nml Nml Nml Nml Nml Right Ext Indicis Radial (Post Int) C7-8 Nml Nml Nml Nml Nml Right Ext Digitorum Radial (Post Int) C7-8 Nml Nml Nml Nml Nml Right BrachioRad Radial C5-6 Nml Nml Nml Nml Nml Right PronatorTeres Median C6-7 Nml Nml Nml Nml Nml Right Abd Poll Brev Median C8-T1 Nml Nml Nml Nml Nml Right ABD Dig Min Ulnar C8-T1 Nml Nml Nml Nml Nml Left 1stDorInt Ulnar C8-T1 Nml Nml Nml Nml Nml Left Ext Indicis Radial (Post Int) C7-8 Nml Nml Nml Nml Nml Left Ext Digitorum Radial (Post Int) C7-8 Nml Nml Nml Nml Nml Left BrachioRad Radial C5-6 Nml Nml Nml Nml Nml Left PronatorTeres Median C6-7 Nml Nml Nml Nml Nml Left Abd Poll Brev Median C8-T1 Nml Nml Nml Nml Nml Left ABD Dig Min Ulnar C8-T1 Nml Nml Nml Nml Nml MTDD
== END 2024-05-27 09:37 | disposition home or self-care (01) ==
LOC: ANHNEURO 09:36
PROVIDERS: PCP Family Medicine; Visit Provider Nurse Practitioner Adult Health
DX: R20.0 Anesthesia of skin (principal); R20.2 Paresthesia of skin; G56.21 Lesion of ulnar nerve, right upper limb
CPT/HCPCS: 95886; 95911

== ENCOUNTER 2024-06-27 08:18 | Outpatient (CLI) | payer OTHER, SELFPAY ==
[2024-06-27 08:37] LABS: Basophils Percent Auto 0.4 % (0.2-1.2); Eosinophils Absolute Auto 0.1 K/mm3 (0-0.3); Eosinophils Percent Auto 1.3 % (0-4.4); Hematocrit 44.8 % (37.0-47.0); Hemoglobin 15.3 g/dL (12.0-15.0); Immature Granulocyte Absolute 0.05 K/mm3 (0.00-0.031); Immature Granulocyte Percent A 0.6 % (0-0.5); Lymphocytes Absolute Auto 2.16 K/mm3 (0.9-3.2); Mean Corpuscular HGB Conc 34.2 g/dl (32-36); Mean Corpuscular Hemoglobin 30.2 pg (26-34); Mean Corpuscular Volume 88.4 fl (80-100); Mean Platelet Volume 9.6 fl (7.4-10.4); Monocytes Absolute Auto 0.4 K/mm3 (0.1-0.6); Monocytes Percent Auto 5.3 % (2.6-8.5); Neutrophils Percent Auto 64.4 % (45.5-73.1); Platelet Count Result 287 k/mm3 (150-375); Red Blood Count 5.07 M/mm3 (4.2-5.4); White Blood Count 7.7 K/mm3 (4.5-10.0)
[2024-06-27 08:56] LABS: LDL Cholesterol Direct 153 mg/dL
[2024-06-27 09:11] LABS: Alanine Aminotransferase 22 U/L (6-35); Albumin Level 4.6 g/dL (3.5-5.1); Alkaline Phosphatase 89 U/L (38-126); Anion Gap 5 mmol/L (4-12); Aspartate Amino Transferase 28 U/L (14-36); Bilirubin,Total 1.4 mg/dL (0.2-1.3); Blood Urea Nitrogen 12 mg/dL (7-17); Calcium 9.6 mg/dL (8.4-10.2); Carbon Dioxide 31 mmol/L (22-30); Chloride 101 mmol/L (98-107); Cholesterol 259 mg/dL (0-200); Estimated Glomerular Filt Rate > 60; Glucose 95 mg/dL (65-110); HDL Direct 39 mg/dL; Potassium 4.3 mmol/L (3.4-5.0); Sodium 137 mmol/L (137-145); Triglycerides 177 mg/dL (<150)
[2024-06-27 09:48] LABS: Iron 97 ug/dL (37-170)
[2024-06-27 09:49] LABS: Folic Acid 7.1 ng/mL (2.76->20)
[2024-06-27 09:56] LABS: Percent Iron Saturation 34 % (20-50)
[2024-06-27 10:01] LABS: Vitamin D 25 Hydroxy 37.1 ng/mL
== END 2024-06-27 08:19 | disposition home or self-care (01) ==
LOC: ANHLAB 08:19
PROVIDERS: PCP Family Medicine; Visit Provider Nurse Practitioner Adult Health
DX: E03.9 Hypothyroidism, unspecified (principal); E55.9 Vitamin D deficiency, unspecified; R20.0 Anesthesia of skin; R20.2 Paresthesia of skin; R25.3 Fasciculation; Z13.220 Encounter for screening for lipoid disorders
CPT/HCPCS: 36415; 80053; 80061; 82306; 82607; 82746; 83540; 83550; 84439; 84443; 85025

== ENCOUNTER 2024-07-31 15:18 | Outpatient (RCR) | payer OTHER, SELFPAY ==
--- NOTE | 2024-07-31 17:51 | PTOPEVAL1 ---
Assessment and note entered by Angelika Richardson, PT Evaluation Information Assessment Status Evaluation Diagnosis G56.21 ICD-10 Condition Codes (PT) M25.521,Weakness R53.1 Onset almost a year Subjective Information Pt reports feeling some discomfort from the elbow to the forearm towards the hand, ring finger and pinky finger. States she would sometimes feel the vibratory and tingling sensation to R upper arm; Noticing it mostly when sitting for long periods of time while working on the computer or when sleeping to the side with arms bent. Tries to stretch out for relief and comfort and takes Ibuprofen when it is bad. States that she is starting to feel similar symptoms to L arm and elbows but milder. Pt wants to be able to move her arms and to be able to work and sleep comfortably without feeling the uncomfortable sensation. Reported Pain Level Pain Score 1: Self Report Additional Pain Score Comments more of annoying discomfort versus pain Assessment PT Clinical Summary Pt is a 28 yo female who presents to the clinic with discomfort, tingling pain/sensation, fatigue and numbness at her R elbow going down to the wrist and hand, occasionally feels pain and discomfort to upper R arm which is consistent with symptoms secondary to ulnar nerve entrapment. Pt also demos limited cervical motions and significantly reduced strength to R UE impacting her daily functional mobility and sleep. Pt will benefit from skilled PT to improve mobility and strength of RUE, use of modalities and techniques to reduce soft tissue tightness and irritation to allow improved nerve conduction and reduce pain and discomfort with performance of ADLs and IADLs. Plan of Care Interventions Check Out for Orthotic/Pr,Electrical Stimulation, Hot Pack/Cold Pack,Intermittent Compression,Manual Therapy,Neuro Re-education,Patient/Caregiver Education,Therapeutic Activities,Therapeutic Exercise,Ultrasound,Other Other Interventions IASTM, Taping PT Services Indicated Yes Treatment Frequency and 2x/wk x 8 visits Duration These treatments will address the objective and functional deficits as defined above. The patient will be advanced safely and appropriately in order for the patient to progress towards his/her prior level of function. Additional exercises will be introduced and as well as a comprehensive home exercise program upon discharge, if needed, ?to ensure carryover of functional gains achieved in the clinic. This treatment plan has been reviewed and agreement upon by the patient.
--- NOTE | 2024-07-31 17:51 | OPREHPOC ---
Outpatient Therapy Plan of Care This is a Multidisciplinary Plan of Care that may contain components documented by all disciplines (PT, OT, and ST.) PT Problem 1 PT Problem #1 Knowledge Deficit PT Goal 1 Goal / Goal Update Pt will demo good understanding of diagnosis and prognosis. Pt will perform HEPs to improve cervical, shoulder , elbow wrist and hand flexibility and strength. Target Visit 4 PT Problem 2 PT Problem #2 Pain PT Goal 1 Goal / Goal Update Pt will rate nerve entrapment symptoms and discomfort to 1-2/10 at worst during provoking activities. Target Visit 8 PT Problem 3 PT Problem #3 Impaired Range of Motion PT Goal 1 Goal / Goal Update Pt will demo normal ROM for cervical, elbow and wrist without palpable soft tissue tightness. Target Visit 8
--- NOTE | 2024-08-26 13:50 | PTOPDC ---
Assessment and note entered by Angelika Richardson, PT Discharge Information Assessment Status Discharge - Pt Not Present Diagnosis G56.21 ICD-10 Condition Codes (PT) Pain in right elbow M25.521,Weakness R53.1 Onset almost a year Subjective Information Pt reports feeling some discomfort from the elbow to the forearm towards the hand, ring finger and pinky finger. States she would sometimes feel the vibratory and tingling sensation to R upper arm; Noticing it mostly when sitting for long periods of time while working on the computer or when sleeping to the side with arms bent. Tries to stretch out for relief and comfort and takes Ibuprofen when it is bad. States that she is starting to feel similar symptoms to L arm and elbows but milder. Pt wants to be able to move her arms and to be able to work and sleep comfortably without feeling the uncomfortable sensation. Assessment PT Clinical Summary Patient presented for her evaluation, agreeable to established goals and program. However, due to personal/work schedule conflict with the clinic times, patient called office to be discharged due to finding a different therapy center that can accommodate and is aligned better with her personal schedule. Plan of Care PT Services Indicated No
== END 2024-08-26 14:32 | disposition home or self-care (01) ==
LOC: ANHHIPT 15:18
PROVIDERS: PCP Family Medicine; Visit Provider Orthopaedic Surgery
DX: G56.21 Lesion of ulnar nerve, right upper limb (principal)
CPT/HCPCS: 97110; 97161

== ENCOUNTER 2025-01-16 13:53 | Outpatient (CLI) | payer OTHER, SELFPAY ==
--- NOTE | ~2025-01-16 | MR_ITS ---
MRI of the right elbow Clinical history: Anesthesia of skin TECHNIQUE: Proton-density and proton-density fat-sat images were acquired in the axial, coronal, and sagittal planes. FINDINGS: Ulnar collateral ligament is intact. Radial collateral ligament and the lateral ulnar colla teral ligament are intact. Common extensor and common flexor tendon origins are intact. Bone marrow signals are unremarkable. No significant joint effusion. No osseous or articular reality the elbow seen. Biceps, brachialis, and triceps tendons are intact. Visualized musculature unremarkable. No soft tiss ue mass or fluid collection seen. IMPRESSION: No significant abnormality seen. Reviewed, dictated and finalized at location .
--- OUTSIDE RECORDS SUMMARY | 2025-01-16 13:58 | XMS_ITS | Clinical Summary ---
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 Social History Tobacco Use Types Packs/Day Years Used Date Smoking Tobacco: Never Assessed Comments Unknown Sex and Gender Information Value Date Recorded Sex Assigned at Female 09/24/2024 8:40 AM CLUTCH REBUILDER Legal Sex Female 5:56 PM CDT Gender Identity Not on file Sexual Orientation Not on file Plan of Treatment Health Maintenance Due Date Last Done Comments Cervical Cancer Screening Pa p Smear (Age 30 to 64) Every 3 Years 1988 Annual Physical 1991 Hepatitis C 2006 DTaP, Tdap and Td Vaccines ( 1 - Tdap) 2007 Hepatitis B Vaccines (1 of 3 - 19+ 3-dose series) 2007 Cervical Cancer Screening Pa p with HPV Testing (Age 30 to 64) Every 5 Years 2018 Cervical Cancer Screening with HPV 2018 COVID-19 Vaccine (2023-2 5 season) 2024 HPV Vaccines Aged Out No longer eligi ble based on patient's age to complete this topic Meningococcal B Vaccine Aged Out No l onger eligible based on patient's age to complete this topic Meningococcal Vaccine Aged Out No karen ting eligible based on patient's age to complete this topic Pneumococcal Vaccine: Pediat rics (0 to 5 Years) and At-Risk Patients (6 to 49 Years) Aged Out No longer eligible b ased on patient's age to complete this topic RSV Immunizations Under 20 Months Aged Out No longer eligible based on patient's age to complete this topic Insurance [employer] Care Teams Manga Artist Relationship Specialty Start Date End Date Faustino Bob MD [address] [address] [place] [address] PCP - General FAMILY PRACTICE 03/08/20
--- OUTSIDE RECORDS SUMMARY | 2025-01-16 13:58 | XMS_ITS | Referral Summary ---
Author Organization [address] Address [address] [place] [address] ROGELIO Martin [address] Care Team Providers Care Map Clerk Name Role Phone Faustino Bob MD Primary Care Provider [phone] Allergies No known active allergies Medications levothyroxine (SYNTHROID) 75 mcg tablet Take 1 tablet (75 mcg total) by mouth daily 07/18/2023 Active Active Problems Problem Noted Date Diagnosed Date Status post advanced surface ablation photorefractive keratectomy (PRK) 06/15/2024 Assessment & Plan (07/10/2024 7:25 AM CDT): One Month PO PRK OU No Problems Good Vision Discontinue ointment at night Art tears PRN Continue eye care with regular eye doctor Assessment & Plan (06/17/2024 8:38 AM CDT): 5 Day PO PRK PRK healing No signs of infection Removed bandage contact lens Continue Pred/moxi QID until 7 days PO, then BID for one week, then discontinue Return in 3 weeks Continue Sun Rx Start Cynthia 128 ointment at night Art tears PRN Discussed activities Assessment & Plan (06/15/2024 10:33 AM CDT): Three Day Post-Op PRK Epithelium healing No signs of infection or inflammation Continue Ketorolac QID until 4 days PO Continue moxifloxacin/prednisilone acetate 1% QID Artificial tears PRN Return for 5 day Post-op Visit Discussed limitations in activities and precautions Resolved Problems Problem Noted Date Diagnosed Date Resolved Date 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 Recommend PRK surgery Discussed PRK surgery, longer healing time, and discomfort. Discussed risk of corneal haze, off label use of mitomycin C and sunglasses Discussed risk of infection and activities following surgery. Discussed post-operative symptoms of nighttime glare and dryness after surgery Discussed presbyopia and reading glasses. Discussed no guarantee of 20/20 vision and risk of enhancement surgery I gave ample time to ask questions and reviewed all concerns. PRK OU [place] Goal In [place] Assessment & Plan (10/11/2023 1:44 PM ROLL FILLER): BUILDING WRECKER Thin Corneas Good Ocular Health Referral from Dr. Dejesus from [facility]/ [facility] Recommend PRK OU Discussed PRK surgery, longer healing time, and discomfort. Discussed risk of corneal haze, off label use of mitomycin C and sunglasses Discussed risk of infection and activities following surgery. Discussed post-operative symptoms of nighttime glare and dryness after surgery Discussed presbyopia and reading glasses. Discussed no guarantee of 20/20 vision and risk of enhancement surgery I gave ample time to ask questions and reviewed all concerns. PRK OU [place] Goal OU Return for dilation before PRK surgery Patient undecided about surgery Social History Tobacco Use Types Packs/Day Years Used Date Smoking Tobacco: Never Smokeless Tobacco: Never Tobacco Cessation:Counseling Given: Not Answered Personal Safety Answer Date Recorded Getting School Help Needed Not on file 09/24 Comments Unknown Sex and Gender Information Value Date Recorded Sex Assigned at Not on file Legal Sex Female 11:43 AM ROLL FILLER Gender Identity Not on file Sexual Orientation Not on file Plan of Treatment Not on file Care Teams Map Clerk Relationship Specialty Start Date End Date Faustino Bob MD PCP - General Family Medicine 10/11/23
--- OUTSIDE RECORDS SUMMARY | 2025-01-16 13:58 | XMS_ITS | Clinical Summary ---
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 Dejesus from [facility]/ [facility] Recommend PRK OU Discussed PRK [...] questions and reviewed all concerns. PRK OU [place] Goal OU Return for dilation before PRK [...] on file Legal Sex Female 11:43 AM HEMODIALYSIS TECHNICIAN Gender Identity Not on file Sexual Orientation Not on file Obstetrics History Plan of Treatment Health Maintenance Due Date Last Done Comments Cervical Cancer Screening 1988 Depression Screening 1988 Hepatitis C Screening 1988 Varicella Vaccines (1 of 2 - 13+ 2-dose series) 2001 Regular Well Visit/Exam 18-64 2006 Covid-19 Vaccine ( season) 2024 06/14/2021, 05/09/2021 Influenza Vaccine (#1) 2024 06/23/2021, 2019 DTaP/Tdap/Td Vaccine (8 - Td or Tdap) 11/21/2031 11/20/2021, 01/05/2019, 04/24/1999, Additional history exists Hepatitis B Screening Completed 04/24/1999 , 11/23/1998, 10/17/1998 HPV Vaccines Aged Out No longer eligi ble based on patient's age to complete this topic Pneumococcal vaccine <65 Aged Out No longer eligible based on patient's age to complete this topic Care Teams Setter Induction Heating Equipment Relationship Specialty Start Date End Date Faustino Bob MD PCP - General Family Medicine 10/11/23
== END 2025-01-16 13:54 | disposition home or self-care (01) ==
PROVIDERS: PCP Nurse Practitioner Adult Health; Visit Provider Nurse Practitioner Adult Health
DX: G56.21 Lesion of ulnar nerve, right upper limb (principal)
CPT/HCPCS: 73221

== ENCOUNTER 2025-02-22 17:52 | Outpatient (CLI) | payer OTHER, SELFPAY ==
--- OUTSIDE RECORDS SUMMARY | 2025-02-22 17:55 | XMS_ITS | Clinical Summary ---
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
--- OUTSIDE RECORDS SUMMARY | 2025-02-22 17:55 | XMS_ITS | Referral Summary ---
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 PRK OU [place] Goal In [place] Assessment & Plan (10/11/2023 1:44 PM CLAIM ADMINISTRATOR): INTERPRETIVE NATURALIST Thin Corneas Good Ocular Health Referral from Dr. Dejesus from [facility]/ [facility] Recommend PRK OU Discussed PRK [...] questions and reviewed all concerns. PRK OU [place] Goal OU Return for dilation before PRK [...] on file Legal Sex Female 11:43 AM CLAIM ADMINISTRATOR Gender Identity Not on file Sexual Orientation Not on file Plan of Treatment Not on file Care Teams Cattle Alley Worker Relationship Specialty Start Date End Date Faustino Bob MD PCP - General Family Medicine 10/11/23
--- OUTSIDE RECORDS SUMMARY | 2025-02-22 17:55 | XMS_ITS | Clinical Summary ---
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 PRK OU [place] Goal In [place] Assessment & Plan (10/11/2023 1:44 PM DIRECTOR OF HOME ECONOMICS): LOCKSTITCH MACHINE OPERATOR Thin [place]neas Good Ocular Health Referral from Dr. Dejesus from [facility]/ [facility] Recommend PRK OU Discussed PRK [...] questions and reviewed all concerns. PRK OU [place] Goal OU Return for dilation before PRK [...] on file Legal Sex Female 11:43 AM DIRECTOR OF HOME ECONOMICS Gender Identity Not on file Sexual Orientation Not on file Obstetrics History Plan of Treatment Health Maintenance Due Date Last Done Comments Cervical Cancer Screening 1988 Depression Screening 1988 Hepatitis C Screening 1988 Varicella Vaccines (1 of 2 - 13+ 2-dose series) 2001 Regular Well Visit/Exam 18-64 2006 Covid-19 Vaccine ( season) 2024 06/14/2021, 05/09/2021 Influenza Vaccine (Season Ended) 2025 06/23/2021, 05/31/2020 DTaP/Tdap/Td Vaccine (8 - Td or Tdap) 11/21/2031 11/20/2021, 01/05/2019, 04/24/1999, Additional history exists Hepatitis B Screening Completed 04/24/1999 , 11/23/1998, 10/17/1998 HPV Vaccines Aged Out No longer eligi ble based on patient's age to complete this topic Pneumococcal vaccine <65 Aged Out No longer eligible based on patient's age to complete this topic Care Teams Framing Carpenter Relationship Specialty Start Date End Date Faustino Bob MD PCP - General Family Medicine 10/11/23
[2025-02-22 18:35] LABS: Free T4 Free Thyroxine 0.93 ng/dL (0.78-2.19)
[2025-02-24 08:59] LABS: Thyroid Peroxidase Antibodies 293 IU/mL (<9)
== END 2025-02-22 17:53 | disposition home or self-care (01) ==
LOC: ANHLAB 17:53
PROVIDERS: PCP Nurse Practitioner Adult Health
DX: E03.9 Hypothyroidism, unspecified (principal); Z83.49 Family history of other endocrine, nutritional and metabolic diseases; F41.9 Anxiety disorder, unspecified; R25.1 Tremor, unspecified
CPT/HCPCS: 36415; 84439; 84443; 86376

== ENCOUNTER 2025-07-20 06:50 | Outpatient (CLI) | payer OTHER, SELFPAY ==
[2025-07-20 07:28] LABS: Hematocrit 42.1 % (37.0-47.0); Hemoglobin 14.2 g/dL (12.0-15.0); Immature Granulocyte Percent A 0.5 % (0-0.5); Lymphocytes Absolute Auto 2.01 K/mm3 (0.9-3.2); Mean Corpuscular HGB Conc 33.7 g/dl (32-36); Mean Corpuscular Hemoglobin 29.7 pg (26-34); Mean Corpuscular Volume 88.1 fl (80-100); Nucleated Red Blood Cells Absolute Auto 0.000 K/mm3 (0.0-0.012); Nucleated Red Blood Cells Perc 0.0 % (0.0-0.2); Platelet Count Result 271 k/mm3 (150-375); Red Blood Count 4.78 M/mm3 (4.2-5.4); White Blood Count 6.0 K/mm3 (4.5-10.0)
[2025-07-20 07:50] LABS: Alanine Aminotransferase 22 U/L (6-35); Albumin Level 4.2 g/dL (3.5-5.1); Alkaline Phosphatase 93 U/L (38-126); Anion Gap 4 mmol/L (4-12); Aspartate Amino Transferase 26 U/L (14-36); Bilirubin,Total 1.2 mg/dL (0.2-1.3); Blood Urea Nitrogen 10 mg/dL (7-17); CRP < 0.5 mg/dL (<1.0); Calcium 8.8 mg/dL (8.4-10.2); Carbon Dioxide 30 mmol/L (22-30); Chloride 101 mmol/L (98-107); Cholesterol 243 mg/dL (0-200); Estimated Glomerular Filt Rate > 60; Glucose 96 mg/dL (65-110); HDL Direct 36 mg/dL; Potassium 4.1 mmol/L (3.4-5.0); Sodium 135 mmol/L (137-145); Total Protein 7.0 g/dL (6.3-8.2); Triglycerides 181 mg/dL (<150)
[2025-07-20 08:14] LABS: Iron 109 ug/dL (37-170)
[2025-07-20 08:26] LABS: Percent Iron Saturation 39 % (20-50)
[2025-07-20 08:52] LABS: Ferritin 39.40 ng/mL (6.24-137)
[2025-07-20 11:37] LABS: Vitamin B12 383.0 pg/mL (239-931)
[2025-07-22 11:08] LABS: ANA by IFA Rfx Titer/Pattern Positive (.)
== END 2025-07-20 06:51 | disposition home or self-care (01) ==
LOC: ANHLAB 06:51
PROVIDERS: PCP Family Medicine
DX: E06.3 Autoimmune thyroiditis (principal); R53.82 Chronic fatigue, unspecified; E55.9 Vitamin D deficiency, unspecified
CPT/HCPCS: 36415; 80053; 80061; 82306; 82607; 82728; 82746; 83540; 83550; 85025; 85652; 86038; 86140